=== PATIENT | male | born 1975 | race Caucasian/White ===

== ENCOUNTER 2020-09-30 11:28 | Emergency (ER) | payer OTHER ==
[~2020-09-30] VITALS: Ht 177.8 cm; Wt 90.7 kg
[~2020-09-30 11:28] MED LIST: AMOXICILLIN 50500 MG PO; FLEXERIL PO; LIORESAL 10 MG10 MG PO; NORCO 5-325 TA1 EACH PO; PERCOCET 7.5-31 EACH PO; PREDNISONE50 MG PO
[2020-09-30 11:38] VITALS: BP 147/103
[2020-09-30] MEDS ORDERED: PREDNISONE 20 M20 M1 PO (11:48)
[2020-09-30] MEDS ORDERED: HYDROCODON-ACE1 EAC7 PO (11:48)
[2020-09-30] MEDS ORDERED: FLEXERIL PO (11:48)
== END 2020-09-30 12:07 | disposition home or self-care (01) ==
LOC: M.ERS 11:28
DX: M54.2 Cervicalgia (principal); M62.838 Other muscle spasm; I10 Essential (primary) hypertension